=== PATIENT | female | born 1975 | race Asian ===

== ENCOUNTER 2022-09-13 04:56 | Emergency (ER) | payer BC ==
[~2022-09-13] VITALS: Ht 167.6 cm; Wt 61.2 kg
[2022-09-13 04:56] VITALS: TEMP 97.9
[2022-09-13 05:39] LABS: PLATELET COUNT 183 K/uL (152-353)
[2022-09-13 05:53] LABS: POTASSIUM 3.4 mmol/L (3.6-5.2)
[2022-09-13 07:00] VITALS: BP 120/74
== END 2022-09-13 07:25 | disposition home or self-care (01) ==
LOC: ED 04:56
PROVIDERS: Emergency Medicine Emergency Medical Services
DX: R00.2 Palpitations (principal); E87.6 Hypokalemia
CPT/HCPCS: 36415; 80053; 81002; 81025; 83735; 84443; 84484; 85027; 93005; 96360; 96361; 99284